=== PATIENT | male | born 1940 | race Caucasian/White ===

== ENCOUNTER 2020-05-04 15:03 | Inpatient (IN) | payer OTHER ==
[~2020-05-04] VITALS: Ht 190.5 cm; Wt 86.5 kg
[2020-05-04 12:00] VITALS: BP 125/58
--- NOTE | 2020-05-04 15:00 | NUR ---
PT RESTLESS IN BED. PT WAS NAKED DUE TO TAKING OFF HIS CLOTHES. REAPPLIED SOCKS, BRIEF, PANTS, AND GOWN. PT PLACED IN KRISTEL CHAIR WITH LAP DAVON DUE TO WANTING TO GET UP AND WALK. PT HIGH FALL RISK. PT FIGITING WITH GOWN. ATTEMPTED TO PUT ON A YELLOW SHIRT, PT GRABBED NURSE WRIST AND TRIED TO BITE HER. PT HAS NUMBEROUS OF SCABS TO LEFT ELBOW, LEFT KNEE, AND SKIN TAB TO BUTTOCKS. APPEARS TO HAVE A TAPE ABRASION TO LEFT BUTTOCKS. PT SITTING OUT IN DINING ROOM. PT FIGITING WITH GOWN AND TRYING TO GET UP. PT ALSO TAKING OFF HIS SOCKS. PT UNABLE TO FOCUS ON STAFF.
--- NOTE | 2020-05-04 16:26 | NUR ---
PT ARRIVES TO FLOOR VIA CART ACCOMNIED BY [facility] FROM [facility] [address]. PT REPORTED BY RN GIVING REPORT TO HAVE BEEN AT [facility] SINCE Apr AND HAD BEEN ADMITTED FROM [facility] AT [facility] WITH MULTIPLE FALLS,INCREASED AGGRESSION AND A-FIB. PER NURSING REPORT PT IS TOTAL CARE-INCONT. B/B-REQUIRES FEEDING AND IS A HIGH FALLS RISK-REQUIRING RESTRAINTS AT [facility]. UPON ARRIVAL TO FLOOR IS DISROBING,TAKING OFF CLOTHING. RESTLESS CONSTANTLY MOVING-ATTEMPTING TO CRAWL OVER SIDERAILS IN BED-WHEN STAFF ATTEMPTED TO INTERVENE AND PUT YELLOW T-SHIRT ON-REPLACE BRIEF AND PANTS GRABS NURSES HAND AND TWISTS VIOLENTLY-ATTEMPTING TO BITE,SCRATCH AND KICK WHEN ATTEMPTS MADE TO REDRESS OR OBTAIN VS. TALKING INCOHERENTLY-CONVERSATION RAMBLING AND NON-GOAL DIRECTED. DR. MCLEAN CONTACTED AND ORDERS RECEIVED. RIANNA CONTEH CONTACTED VIA PHONE AND CONSENTS RECEIVED.
[2020-05-04] MEDS ORDERED: ALPRAZOLAM XR3 MG PO (16:41)
[2020-05-04] MEDS ORDERED: ASA81BEC PO (16:42)
[2020-05-04] MEDS ORDERED: VOLTAREN GEL 1100 G1 TOP (16:43)
[2020-05-04] MEDS ORDERED: LIPITOR40 MG PO (16:44)
[2020-05-04] MEDS ORDERED: DULCOLAX STOOL100 M1 PO (16:45)
[2020-05-04] MEDS ORDERED: DIVALPROEX SOD250 M3 PO (16:45)
[2020-05-04] MEDS ORDERED: AVODART0.5 MG PO (16:45)
[2020-05-04] MEDS ORDERED: FISH OIL 1,001000 M3 PO (16:46)
[2020-05-04] MEDS ORDERED: NEURONTIN 300M300 M2 PO (16:47)
[2020-05-04] MEDS ORDERED: MAGNESIUM OXID400 M2 PO (16:49)
[2020-05-04] MEDS ORDERED: NIZORAL120 ML TOP (16:49)
[2020-05-04] MEDS ORDERED: LOPRESSOR50 MG PO (17:08)
[2020-05-04] MEDS ORDERED: NITROSTAT0.4 M1 SUBLING (17:14)
[2020-05-04] MEDS ORDERED: OLANZAPINE ODT5 MG PO ×2 (17:15→17:16)
[2020-05-04] MEDS ORDERED: SERTRALINE HCL100 MG PO (17:18)
[2020-05-04] MEDS ORDERED: FLORANEX TABLE1 EACH PO (17:18)
[2020-05-04] MEDS ORDERED: FLOMAX0.4 MG PO (17:19)
--- NOTE | 2020-05-04 17:57 | NUR ---
IN GERICHAIR IN DAYROOM ATTEMPTING TO GET UP-SLIDING UNDER LAP BELT AND ATTEMPTING TO CRAWL OVER SIDES. GRABBING ONOT TABLE AND RAMMING GERICHAIR FORCEFULLY INTO TABLE-DR. MCLEAN ON UNIT ZYPREZA 5MG IM GIVEN LEFT DELTOID
[2020-05-04 19:36] VITALS: BP 116/72
--- NOTE | 2020-05-05 02:31 | NUR ---
ASSUMED PT CARE AROUND 1930. AWAKE, DISORIENTED X4 WITH AGITATION AND IMPULSIVENESS. SEEMS LIKE PT'S ALSO HAVING VISUAL/TACTILE HALLUCINATIONS REACHING OUT WITH HAND IN OPEN AIR. DOES NOT FOLLOW ANY COMMANDS AT THIS TIME. ONE TIME ATIVAN WAS GIVEN FOR AGITATION AND IMPULSIVENESS EVEN WITH SITTER WITH PT AT ALL TIMES. PT STILL AWAKE RESTELSS, UNABLE TO CALM DOWN, CONSTANT MOVEMENT IN RECLINER. VSS. NO APPRENT PAIN. NO S/S ACUTE DISTRESS NOTED OR REPORTED AT THIS TIME. WILL CONT TO MONITOR FOR ANY CHANGES IN CONDITION.
[2020-05-05 06:35] LABS: HEMATOCRIT 45.5 % (42.0-52.0); HEMOGLOBIN 15.3 gm/dL (14.0-18.0); MCH 32.3 pg (26.0-34.0); MCHC 33.6 g/dL (28.0-37.0); RBC 4.74 mil/uL (4.50-6.00); RDW 12.7 % (10.5-14.5); WBC 4.1 thou/uL (4.0-11.0)
[2020-05-05 06:53] LABS: ALBUMIN 3.6 g/dL (3.4-5.0); CALCIUM 9.2 mg/dL (8.5-10.1); CREATININE 0.9 mg/dL (0.7-1.3); MAGNESIUM 2.1 mg/dL (1.8-2.4); POTASSIUM 4.2 mmol/L (3.5-5.1); TOTAL BILIRUBIN 0.4 mg/dL (0.2-1.0); TOTAL PROTEIN 7.1 g/dL (6.4-8.2)
[2020-05-05 07:21] LABS: TSH 0.233 uIU/mL (0.358-3.740)
--- NOTE | 2020-05-05 07:30 | NUR ---
PT SLEEPING IN RECLINER THIS AM. PT GETTING LAB DRAWN. PT SLEEPING THROUGH DRAW. PT HAS 1:1 FOR SAFETY. PT AWAKEN WITH VERBAL STIMULI THEN BACK TO SLEEP. PT APPEARS COMFORTABLE IN RECLINER.
[2020-05-05 08:10] LABS: FOLIC ACID 22.6 ng/mL (8.6-58.9)
--- NOTE | 2020-05-05 09:18 | NUR ---
PT STILL SLEEPING IN RECLINER, DIDN'T HAVE BREAKFAST.
--- NOTE | 2020-05-05 09:29 | EKG ---
[facility] [place] [address] ELECTROCARDIOGRAM REPORT Name: BRITTNEY BOOGIE Room #: 517-A ADM IN M.R.#: [id number] Admission: 05/04/20 Attend Phys: Gabriele Arauz DO Discharge: Date of : 42 Report #: [id number] THIS REPORT FOR: cc: Physician not on staff Minh Grace MD [facility] ~ THIS REPORT FOR: //name// [facility] Test Date: 2020-05-04 Test Time: 18:28:43 Pat Name: BRITTNEY BOOGIE Department: Room: 517 A Gender: M Management Accountant: CAROLINE : 1940 Requested By: Swapnil Thao Order Number: [id number] MD: Minh Grace Measurements Intervals [place] Rate: 83 P: 77 IA: 43 QRS: 63 QRSD: 89 T: 9 QT: 401 QTc: 472 Interpretive Statements Sinus rhythm Supraventricular bigeminy Short IA interval No previous ECG available for comparison Electronically Signed On 05-05-2020 9:29:37 CDT by Minh Grace [email or web address] <ELECTRONICALLY SIGNED> By: Minh Grace MD, FACC 05/05/20 0929 27 27 Minh Grace MD, [facility] /EPI
--- NOTE | 2020-05-05 10:11 | NUR ---
PT IS AWAKE AT THIS TIME. WILL ATTEMPT TO GIVE AM MEDS. PT WAS TAKEN TO HIS ROOM TO BE CHANGED. NO ISSUES WITH CARES. PT ABLE TO SIT ON SIDE OF BED AND BEAR WT TO LEGS.
--- NOTE | 2020-05-05 10:28 | NUR ---
PT SITTING IN CHAIR WITH LAP DAVON. PT AWAKE WITH EYES CLOSED. PT DID EAT YOGART AND OATMEAL 100%. PT TOOK CRUSHED MEDS IN YOGART AND WHOLE MEDS IN YOGART. PT CHEWED UP WHOLE MEDS. PT SPIT OUT FLOMAX ON FLOOR. PT LAUGHING WITH NURSE DURING CONVERSATION. PT EYES OPEN AFTER DRINKING SOME OJ. PT NEEDED FED.
--- NOTE | 2020-05-05 11:10 | NUR ---
PT STOOD UP IN DINING ROOM. STAFF OFFERED A WALKER, PT UNABLE TO FOCUS TO USE WALKER. PT WAS ABLE TO REDIRECT BACK TO CHAIR.
--- NOTE | 2020-05-05 12:31 | NUR ---
PT ATE A FEW BITES OF CARROTS WITH LUNCH.
[2020-05-05 19:33] VITALS: BP 121/68
[2020-05-05 22:00] VITALS: BP 121/68
--- NOTE | 2020-05-06 02:59 | NUR ---
Assumed care of patient this pm shift. Patients assessment done in room. Patient has a 1:1 sitter while awake. Patient was very groggy but arousable. Patient was non verbal during assessment. Patient calm and resting. Patient takes medications crushed with pudding. Patients affect is blunted. Patient is alert and oriented to self only. Patients assessment shows no signs of acute distress. Patient is considered a falls risk and has on a yellow shirt and socks. Patient does not appear to want to harm self or others at this time. We will continue to monitor per hospital policy.
[2020-05-06 07:48] VITALS: BP 128/76
--- NOTE | 2020-05-06 08:54 | NUR ---
0700 ASSUMED CARE OF PATIENT, PATIENT SITTING IN DAYROOM AT THAT TIME. PATIENT SITTING IN GERICHAIR RESTLESS AND ATTEMPTING TO REMOVE SHIRT. 0800 PATIENT ASSISTED WITH BREAKFAST, FEW BITES OF MEAL TAKEN. MEDICATION TAKEN CRUSHED IN APLLESAUCE WITHOUT DIFFICULTY. PATIENT SITTING IN GERICHAIR DRINKING COFFEE QUIETLY. ONE ON ONE AT CHAIR SIDE WITH LAP BUDDING IN PLACE. WILL CONTINUE TO OBSERVE
--- NOTE | 2020-05-06 12:19 | NUR ---
1030 PATIENT SLEEPING IN BED WITH EYES CLOSED. 1130 PATIENT BEGINNING TO BECOME RESTLESS. 1:1 AT BEDSIDE. 1200 PATIENT COMBATIVE WITH CARE AND ATTEMPTING TO GET OUT OF BED. PATIENT IS UNSTEADY AND HIGH FALL RISK. BED ALARM ON, PATIENT HAS YELLOW SHIRT ON WITH FALL RISK BAND IN PLACE. 1220 PATIENT TO ROSA CHAIR WITH ASSIST X2, DR MCLEAN ASSISTED STAFF TO TRANSFER PATIENT. PATIENT TO DAYROOM FOR LUNCH.
[2020-05-06 19:20] VITALS: BP 120/49
[2020-05-06 23:12] VITALS: BP 120/49
--- NOTE | 2020-05-07 02:41 | NUR ---
Assumed care of patient this pm shift. Patients mood is variable. Patient is alert and oriented to self only. Patient takes medications as scheduled crushed with pudding. Patient became very agitated towards bedtime and was given a prn medication. Patient calmed down within a half hour and went to sleep. Patients vital signs are stable. Patient shows no signs of acute distress. Patient is considered a falls risk and has on a yellow shirt. Patients affect is blunted. We will continue to monitor per hospital policy.
--- NOTE | 2020-05-07 08:05 | H ---
[facility] [place] [address] HISTORY AND PHYSICAL Name: BRITTNEY BOOGIE Room #: 517-A [facility] IN M.R.#: [id number] Admission: 05/04/20 Attend Phys: Gabriele Arauz DO Discharge: Date of : 42 Report #: [id number] THIS REPORT FOR: cc: Physician not on staff Gabriele Arauz DO ~ CC: Gabriele Arauz Physician staff RENU INTERIANO DATE OF SERVICE: 05/04/2020 INPATIENT PSYCHIATRIC EVALUATION ATTENDING PHYSICIAN: Gabrilee Arauz DO. [place] PATROL LIEUTENANT: Swapnil Thao MD REASON FOR PSYCHIATRIC ADMISSION: Agitation, unable to control behaviors at the [facility] where he was hospitalized for tachycardia since mid-April. SOURCES OF INFORMATION: Attempted interview with the patient, records from [facility], conversation with his , Lola. HISTORY OF PRESENT ILLNESS: This is a 79-year-old male, transferred from [facility] to the [facility] Unit at [facility]. The patient had been placed at [facility] for approximately 1 week before presenting on 04/17 to the [facility]. Apparently, he had altered mental status. He presented from the nursing facility with reports of recurrent falls, agitation, combativeness. His medical history includes paroxysmal atrial fibrillation, Alzheimer's dementia, hypertension, hyperlipidemia and obstructive sleep apnea, on CPAP. His had been unable to care for him. They stated the patient was very pleasant and steady on his feet in the evenings; however, the patient becomes quite agitated and physical with staff. She reports that he attempted to throw rocks through windows in order to "escape" in the evening, this was back in mid-April, he was kicking and punching staff. Nursing facility also reported that he had 6 falls within 48 hours. These were not necessarily witness, but they were mechanical in nature. Past medical records indicate he is on Xarelto for paroxysmal atrial fibrillation. Patient had several medication adjustments as of mid-April. He had been on Seroquel and Ativan as needed. At [facility]' given Depakote, Risperdal and as needed Xanax regimen. They did a CT of the head, which was negative for acute findings. X-ray of the pelvis showed no acute fractures. Chest x-ray showed interstitial edema with bibasilar heterogeneous opacities, thought to be atelectasis. Labs back in mid-April; [address] [address] HISTORY AND PHYSICAL Name: BRITTNEY BOOGIE Room #: 517-A ADM IN M.R.#: [id number] Admission: 05/04/20 Attend Phys: Gabriele Arauz, Discharge: Date of : 42 Report #: [id number] hypernatremic sodium was 148, potassium 3.4, AST 76, otherwise unremarkable. On arrival to the ED, was in AFib with RVR, rates 120s-130s. He was started on a diltiazem drip and admitted. PAST MEDICAL HISTORY: As stated includes Alzheimer's dementia, anisocoria, coronary artery disease, erectile dysfunction, essential hypertension, hereditary and idiopathic peripheral neuropathy, melanoma in situ of breast, mixed hyperlipidemia, osteoarthritis, paroxysmal atrial fibrillation, history of melanoma, sleep apnea. PAST SURGICAL HISTORY: Includes PCI YESIKA 12/10/2017 at [facility]. ADDITIONAL SURGICAL HISTORY: Appendectomy in 2012, cataract extraction bilateral 12/2017. Coronary angiography with possible PCI 12/2017. Epidural block injection 06/2018. EGD with biopsy 2014. Biopsy with forceps 03/2015. Hand surgery, knee surgery. Biopsy of skin lesion. Revised median nerve carpal tunnel surgery, rotator cuff repair and vasectomy. FAMILY MEDICAL HISTORY: Includes history of gastric cancer. Apparently, his mother had Alzheimer's disease. He has had a brother of cancer and one of heart failure. I think he has at least 1 living sibling, older sister, I believe. SOCIAL HISTORY: Former smoker, quit over 40 years ago, allegedly 10 pack years. No history of smokeless tobacco. No history of alcohol use. ALLERGIES: HOUSEHOLD DUST MITES, SULFONAMIDE ANTIBIOTICS AND LOSARTAN, BELIEVE THIS IS AN JULISSA INDUCED COUGH. For medications, I will focus on what [facility] discharged to mom as they dealt with other long-term med issues prior to his acute care admission. 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 It looks like Dr. Barnhart recommended 125 Depakote in the morning and 250 at bedtime, decrease Neurontin to 200 b.i.d., supportive therapy. He had episodic agitation. It looks like they got up to 250 t.i.d. with meals on Depakote. LABORATORY DATA: Nice set of lab does show from 05/03, white count 4.22, hemoglobin 16, hematocrit 48, platelet count 188. Sodium 145, potassium 3.7, chloride 108, bicarbonate 28, BUN 33, creatinine 1.0, calcium 9.5, glucose 108. Dr. Barnhart noted visual hallucinations during admission process, memory intermittently coherent. It looks like there was a Neurology consult note, but I am not sure I have that included in the materials I got. [facility] [address] [place] [address] HISTORY AND PHYSICAL Name: BRITTNEY BOOGIE Room #: 517-A ADM IN M.R.#: [id number] Admission: 05/04/20 Attend Phys: Gabriele Arauz DO Discharge: Date of : 42 Report #: [id number] PHYSICAL EXAMINATION: His weight is 92.533 kg, BMI 25.5, height 190.5 cm. VITAL SIGNS: Here at [place], temperature 98.4, pulse 52, respirations 12, BP 125/58. MUSCULOSKELETAL: Nonambulatory in Francesca chair, grabbing things, holding furniture at times. MENTAL STATUS EXAMINATION: This is a well-developed, ill-appearing male, variable level agitated in Francesca chair. Attention impaired. Concentration impaired. Speech coherent, nonsensical, appears to be disoriented and disorganized as to environment and what to do. Denied SI or HI. Likely having visual hallucinations. Unable to assess. Thought content, very well. Memory noted to be impaired, not formally tested. Insight impaired, judgment impaired. Fund of knowledge well below average. Labs have been ordered by hospitalist. FORMULATION: A 79-year-old male transferred to [facility]. History of major neurocognitive disorder due to Alzheimer disease with behavioral disturbance, poor control of this in the acute hospital environment. This is needing to be managed better for him to return memory care placement. DIAGNOSES: Major neurocognitive disorder, likely due to Alzheimer disease with behavioral disturbance. Other diagnoses include paroxysmal atrial fibrillation, now rate controlled; hypertension, hyperlipidemia, benign prostatic hypertrophy, history of arthritis. PLAN: Evaluate, stabilize, obtain collateral. Regarding this Depakote, I will increase to 375 mg of it 3 times a day, Rain [place] Reduce the sertraline from 50 mg to 25 mg a day, stop in 4 days. No Xanax at this time due to the likely disinhibitory effect. Other medications are ordered as follows: He was given at [facility] aspirin 81 mg p.o. daily for heart protection. I discontinued his atorvastatin due to poor life expectancy, discussed with his , I also made him no code. Again, discussed with . He is on dutasteride 0.5 mg p.o. daily for BPH, Flomax 0.4 mg p.o. daily. Gabapentin 300 mg p.o. 3 times a day for neuropathy, magnesium oxide 400 mg p.o. daily for replacement, metoprolol 25 mg p.o. b.i.d. for rate control, I put a 60 beats per minute pulse parameter on this. He is on olanzapine 0.5 mg p.o. at bedtime for sleep and sundowning. Given him describing on things, poor redirect, I did order 5 mg one time IM at about 1730 tonight to see how he responds to that. Time spent on interview, evaluation, review of records, coordination of care is about 45 minutes. STRENGTHS: He is insured, has a who is his DPOA. By the way, he is [address] [address] HISTORY AND PHYSICAL Name: BRITTNEY BOOGIE Room #: 517-A ADM IN ..#: [id number] Admission: 05/04/20 Attend Phys: Gabriele Arauz, DO Discharge: Date of : 42 Report #: [id number] incapacitated for higher level of medical, general financial decisions, so that is enacted at this point. ESTIMATED LENGTH OF STAY: 10-14 days. Regular diet at this point. Regular with assisted feedings as necessary, up only with assistance which is 1 to 2 person and I did put him on 1:1 while awake for now given his fall risk, agitation. Physical therapy has been ordered as well. <ELECTRONICALLY SIGNED> By: Gabriele Arauz DO 05/07/20 0805 1822 57 Gabriele Arauz DO /nt
--- NOTE | 2020-05-07 18:42 | NUR ---
0700 ASSUMED CARE OF PATIENT, PATIENT SITTING IN GERICHAIR IN ROOM WITH 1:1 AT CHAIR SIDE. PATIENT CALM AND QUIET. PATIENT TAKEN TO DAYROOM FOR BREAKFAST AND ASSISTED WITH EATING. PATIENT AGITATED AND ATTEMPTING TO GET UP OUT OF CHAIR. PATIENT TAKEN TO BR TO USE TOILET PATIENT DID NOT VOID. PATIENT DIFFICUT TO HANDLE WITH CARES. PATIENT GRABS AND SQUEZZES HAND AND ARMS OF STAFF. PATIENT BACK TO DAYROOM. 1355 PATIENT GIVEN OLANZAPINE 5MG PO FOR AGITATION. US CONTINUES TO SIT WITH PATIENT 1:1. PATIENT COMBATIVE WITH CARES PATIENT GIVEN OLANZAPINE 5MG IM FOR SEVERE AGITATION. PATIENT CONTINUES TO REMOVE CLOTHING IN CREEPING DOWN GERICHAIR. PATIENT TO ROOM ATTEMPTED TO CHANGE BRIEF, PATIENT COMBATIVE AND SECURITY CALLED TO ASSIST AND CHANGE PATIENT. PATIENT SITTING IN DAYROOM TRYING TO GET UP OUT OF CHAIR. PATIENT UNSTEADY. LAP DAVON IN PLACE
--- NOTE | 2020-05-07 21:21 | NUR ---
Care of patient assumed at 1915: Patient seated in gaye chair, in dayroom with lap pawan in place, with 1:1 sitter at side. Patient restless, easily irritable, labile, frustrated. Patient speaking clear words but disorganized. No s/s of pain or discomfort. No behavior indicative of SI/HI/AH/VH. Patient will sit quietly for a couple minutes then quickly starts to pull on lap pawan, stand up or slide forward to the floor. Frequent re-direction has been required this evening. Patient ate 100% of 2 different snacks. Drank 240cc water. Required total assist due to confusion. Patient answers to name being called but is not able to provide further meaningful information. Disoriented, confused. Took HS medication crushed without difficulty. Remains restless and is seated with sitter in dayroom.
[2020-05-08 09:19] VITALS: BP 115/75
--- NOTE | 2020-05-08 09:30 | NUR ---
0700 ASSUMED CARE OF PATIENT, PATIENT AWAKE AND SITTING IN DAYROOM WITH LAP DAVON ON AND 1:1 AT CHAIRSIDE. PATIENT FIDGETY IN CHAIR. 0810 PATIENT TAKES MEDICATION CRUSHED IN APPLESAUCE WITHOUT DIFFICULTY. PATIENT ATE 95% OF MEAL. 0850 PATIENT NOTED SLEEPING WITH EYES CLOSED IN CHAIR.
--- NOTE | 2020-05-08 14:40 | NUR ---
MIKE attempted to contact Pt's /DPOA Lola Abel, . MIKE left a VM for a call back. MIKE sent updates to [facility]
--- NOTE | 2020-05-08 18:01 | NUR ---
PATIENT RESTLESS AND CONTINUES TO DISROBE. 1645 PATIENT TAKEN TO SHOWER ROOM AND SHOWER GIVEN X 3 ASSIST. PATIENT TOLERATED WELL WITH MINIMAL AGGRESSION DURING SHOWER. SMALL HARD RED SPOT NOTED TO LEFT BOTTOM. PATIENT TO [facility] AND TO DAYROOM FOR DINNER. PATIENT ATE 100% OF MEAL. AFTER DINNER PATIENT CONTINUES TO BE RESTLESS.
[2020-05-08 19:35] VITALS: BP 139/116
[2020-05-08 20:07] VITALS: BP 128/82
--- NOTE | 2020-05-08 23:14 | NUR ---
Care assumed of patient at 1915: Patient seated in dayroom at start of shift. Patient restless, impulsive, attempting to get out of chair independently. Removing clothing and pilfering. Resistive to assessment and vital signs. Attempted to grab nurse arms and kick legs at nurse. Staff required assist to remove patients hands from staff and medical equipment. Patient would then look at staff and smile and wave. Labile at times. Easily irritable. Attempted to assist patient with urinal due to him stating he needed to use the bathroom. Staff attempted to assist with urinal for several minutes when patient then grabbed the urinal, crushing it, then throwing it on the floor. Patient did take HS medication crushed without difficulty. Ate 100% HS snack, fed by nurse. Patient responds to name being called but is not able to repeat name back to staff. Speech disorganized and rambling at times. Attempted to assist patient to bed due to appearing tired and falling asleep while sitting in gaye chair. Patient started to crawl in his bed, trying to hang over the side of the mattress. Patient assisted back to his recliner and assisted to dayroom. FRANCIS Malagon notified. Due to some positive results from Trazodone 50mg PO, order obtained to repeat Trazodone 50mg PO 1x. After approximately 1 hour, patient was able to be assisted to bed and appears to be resting quietly at this time.
[2020-05-09 07:27] VITALS: BP 142/75
[2020-05-09 10:34] VITALS: BP 142/75
--- NOTE | 2020-05-09 12:38 | NUR ---
1240 RESUMMED CARE FROM OVERNIGHT SHIFT THIS AM, PATIENT IN DAYROOM IN RECLINER QUIET. PATIENT WAS SOMEWHAT HARD TO AWAKE FOR BREAKFAST, TOOK MEDICATION CRUSHED IN OATMEAL. PATIENTS ABDOMEN SOFT ROUND BOWEL SOUNDS PRESENT. PATIENTS LUNGS CLEAR PATIENT HAS NOT DISPLAYED ANY BEHAVIORS THIS AM. PATIENT UNABLE TO TELL YOU ABOUT SI.HI/AH/VH AT PRESENT DUE TO COGNITIVE ISSUES. PATIENT IN RECLINER SLEEPING ON AND OFF ORIENTED TO SELF ONLY WILL CONTINUE TO MONITOR PATIENT FOR SAFETY AND BEHAVIORS.
--- NOTE | 2020-05-09 12:52 | NUR ---
UNABLE TO EVAL Pt TIMES 4 ATTEMPTS. PER STAFF AT Pt'S FACILITY, Pt REQUIRES ASSIST/DEPENDENT FOR ALL ADL'S/MOBILITY. Pt IS NOT APPROPRIATE FOR SKILLED P.T.. WILL D/C Pt FROM P.T. AT THIS TIME.
--- NOTE | 2020-05-09 14:20 | NUR ---
RT Progress Note- Filiberto has not actively engaged in the milieu or recreation therapy during this review period. His level of cognition has limited him as well as his aggressive behavior. RT staff will continue to offer opportunities to engage in the milieu and recreation.
[2020-05-09 19:32] VITALS: BP 126/64
[2020-05-09 19:33] VITALS: BP 126/64
--- NOTE | 2020-05-09 20:59 | NUR ---
PATIENT LAYING IN BED IN ROOM ISOLATION WHEN CAME ON SHIFT. PATIENT AWOKE TO GO TO BATHROOM. VSS 116/58 P70 R20 T97.4 0296%. PATIENT UNABLE TO FOLLOW DIRECTIONS WITH LACK OF COMPREHENSION OF WHAT IS BEING SAID. LUNGS CTA BILATERALLY. NO SOA, NO COUGH NOTED. ABDOMEN FIRM WITH ACTIVE BOWEL SOUNDS. PATIENT A/0X1. PATIENT AMBULATES STEADILY WITHOUT ASSISTANCE. NIGHTTIME MEDS GIVEN CRUSHED IN APPLESAUSE AND SHERBERT FOR SNACK. PATIENT UP LATER NEEDING TO BE REDIRECTED TO STAY IN ROOM. NEW ORDER PER DR MCLEAN FOR GEODON 20MG IM WHICH WAS GIVEN WITH SECURITY ASSISTANCE. PATIENT DENIES PAIN. HAS TO BE ENCOURAGED TO TAKE MEDS. LAB REPORT POSITIVE FOR COVID AT 2044. REPORT CALLED TO KRISHNA Shrestha RN ON 3W. PATIENT TRANSPORTED BY TO THE FLOOR WITH MASK ON. CONTINUE TO MONITOR. BELONGINGS FROM LOCKER SENT ALSO.
--- NOTE | 2020-05-09 22:31 | NUR ---
Care assumed of patient at 1915: Patient seated in recliner in dayroom at start of shift. Appears to be drowsy but restless at times in trying to move furniture, removing clothing, stand up or slide forward out of chair independently. Patient incontinent of bladder. Patient not able to stand and becoming physically aggressive while staff attempted to provide angel care and linen change. Security notified to assist. Patient was able to be changed, clothed and barrier cream applied. Patient remained restless so he was assisted back to recliner and placed in dayroom for increased observation. Patient alert to name only. No s/s of pain or discomfort. Clear but disorganized speech. Patient was soon able to fall asleep after lights were dimmed. Patient took HS medication crushed without difficulty. Declined further HS snack by pushing away nurses arm when attempting to feed patient pudding. Patient has been able to rest quietly since.
[2020-05-10 07:37] VITALS: BP 112/62
[2020-05-10 16:18] LABS: ABSOLUTE NEUTROPHILS 3.1 thou/uL (1.4-8.2); BASOPHILS 0.8 % (0.0-2.0); EOSINOPHILS 3.1 % (0.0-3.0); HEMATOCRIT 43.1 % (42.0-52.0); HEMOGLOBIN 14.3 gm/dL (14.0-18.0); LYMPHOCYTES 20.3 % (24.0-44.0); MCH 31.8 pg (26.0-34.0); MCHC 33.1 g/dL (28.0-37.0); MCV 96.2 fL (80.0-100.0); MONOCYTES 9.4 % (1.0-8.0); PLATELET COUNT 155 thou/uL (150-400); POLYS 66.4 % (36.0-66.0); RBC 4.48 mil/uL (4.50-6.00); RDW 13.1 % (10.5-14.5); WBC 4.7 thou/uL (4.0-11.0)
[2020-05-10 16:27] LABS: CALCIUM 8.9 mg/dL (8.5-10.1); POTASSIUM 3.7 mmol/L (3.5-5.1)
--- NOTE | 2020-05-10 16:39 | NUR ---
Alerts to name only. Confused speech to other questions. No speech/behavior suggestive of SI/HI. Becomes restless at times trying to stand up and get out of chair. Other times is sleeping soundly without s/o distress. Eats well when fed. Breath sounds clear. Reg HR auscultated. Color pink with brisk capillary refill and palpable peripheral pulses. No edema noted in lower extremities. Brief dry this AM Active bowel sounds over soft, rounded abdomen. 1545 Dr. Rausch rounded and requested O2 sat--mid 80s despite color pink per report. O2 sat repeated on ear lobe--94-96% Dr. Rausch notified. ABG, CXR and RT tx cancelled per order. Pt incontinent of large amt yellow urine. Cleaned up and placed back in recliner. Currently sleeping without s/o distress.
[2020-05-10 21:59] VITALS: BP 112/62
--- NOTE | 2020-05-11 01:52 | NUR ---
Assumed care of patient this pm shift. Patient sitting in mileu. Alert and oriented to self only. Affect euthymic. Patient is calm and cooperative. Medication adherent. Meds crushed in ice cream. Patients vital signs stable. Patients assessment shows no signs of acute distress. Patient is incontinent of bowel and bladder. Patient is considered a falls risk and has on a yellow shirt. Patient does not appear to have hi/si. Patient does not appear to be in any pain. We will continue to monitor per hospital policy.
[2020-05-11 06:20] LABS: ABSOLUTE NEUTROPHILS 2.5 thou/uL (1.4-8.2); BASOPHILS 0.7 % (0.0-2.0); EOSINOPHILS 3.7 % (0.0-3.0); HEMOGLOBIN 14.6 gm/dL (14.0-18.0); LYMPHOCYTES 21.3 % (24.0-44.0); MCH 32.5 pg (26.0-34.0); MCHC 33.9 g/dL (28.0-37.0); MONOCYTES 9.5 % (1.0-8.0); PLATELET COUNT 152 thou/uL (150-400); POLYS 64.8 % (36.0-66.0); RBC 4.48 mil/uL (4.50-6.00); RDW 12.9 % (10.5-14.5); WBC 3.8 thou/uL (4.0-11.0)
[2020-05-11 06:50] LABS: ALBUMIN 3.3 g/dL (3.4-5.0); CREATININE 0.8 mg/dL (0.7-1.3); MAGNESIUM 2.1 mg/dL (1.8-2.4); POTASSIUM 3.7 mmol/L (3.5-5.1); TOTAL BILIRUBIN 0.4 mg/dL (0.2-1.0); TOTAL PROTEIN 6.7 g/dL (6.4-8.2)
[2020-05-11 07:00] VITALS: BP 111/85
--- NOTE | 2020-05-11 11:02 | NUR ---
PATIENT WAS SITTNG IN GERICHAIR AWAKE WHEN CARE ASSUMED. PATIENT WAS RESTLESSS, IRRITABLE, AGITATED, ATTEMTPING TO SLIDE DOWN OF GERICHAIR. DR. MCLEAN NOTIFIED, ONE TIME PHONE IM ORDER FOR HALDOL 7.5MG, AND ATIVAN 2MG NOTED PER DR. MCLEAN. HALDOL AND ATIVAN GIVEN TO LEFT DELTOID, WITH POSITIVE EFFECT. ORDER FOR BLADDER SCAN, STRIAGHT, AND URINALYSIS, NOTED PER DR. WICK. THIS DIGITIZER'S ATTEMPT TO PERFORM BLADDER SCAN FAILED THE BLADDER MACHINES WAS NOT COMING ON. STRAIGHT CATH COMPLETED, WITH URINE OUT-PUT OF 100MLS, URINE SPECIMEN COLLECTED, SENT TO LAB, AWAITING RESULT. PATIENT CONTINUE TO BE RESTLESS WHILE SITTING IN GERICHAIR, LAPBUDDY ON, ALL FALL PRECAUTIONS IN PLACE. NO SIGN OF ACUTE DISTRESS NOTED AT THIS TIMED, WILL MONITOR FOR SAFETY.
[2020-05-11 13:49] LABS: URINE BILIRUBIN NEGATIVE (Negative); URINE BLOOD NEGATIVE (Negative); URINE CLARITY CLEAR; URINE COLOR YELLOW; URINE GLUCOSE-RANDOM* NEGATIVE (Negative); URINE KETONES NEGATIVE (Negative); URINE LEUKOCYTES-REFLEX NEGATIVE (Negative); URINE NITRITE-REFLEX NEGATIVE (Negative); URINE PROTEIN (DIPSTICK) NEGATIVE (Negative); URINE SPECIFIC GRAVITY 1.015 (1.005-1.035); URINE UROBILINOGEN 0.2 E.U./dl (0.2-1.0)
[2020-05-11 19:35] VITALS: BP 133/50
--- NOTE | 2020-05-12 03:17 | NUR ---
Assumed care of pt @ 1900. Pt calm et cooperative this shift. Took medications crushed in yogurt. Ambulates with assistance of gaye-chair. VSWNL. Health assessment with no abnormalities other than previously noted. Unable to assess SH/HI/AVH due to pt's cognitive deficit but does not demonstrate any signs or symptoms of emotional distress at present time. Currently resting in gaye-chair in dayroom with eyes closed. Will continue to monitor per protocol.
[2020-05-12 07:00] VITALS: BP 106/61
--- NOTE | 2020-05-12 13:36 | NUR ---
Alerts to name only. Drowsy this AM and sporadically gets restless and attempts to get out of chair/bed. Attempted to feed for breakfast and lunch with little sucess. Takes fluids/food without diff at times and at other times lets fluids/food run out of his mouth or spits. Moves arms equally and is resistant equally but does not obey commands. Pupils equal and reactive. No speech or behavior suggestive of SI/HI. Dr. Drake notified when rounding, 1300 Olanzapine held per order. Breath sounds clear. Reg HR auscultated. Color pink with brisk capillary and cool extremities. Incontinent of large amt yellow urine per brief. Active bowel sounds over soft, rounded abdomen. Last documented BM was 05/08 although there is a nurses note on 05/10 stating pt is incontinent of bowel and bladder. Milk of magnesium and prune juice given PO which he took w/o diff. Erythema on scrotom and buttocks. Pericare done and zinc paste applied. No attempts at walking this AM, bears very little weight. Repositioned multiple times d/t restlessness.
--- NOTE | 2020-05-12 15:39 | NUR ---
DURING WEEK ONE OF HER ADMISSION, JAMA HAS BEEN VERY ISOLATED WITH HIS PEERS AND STAFF. HE MAINLY SLEEPS THROUGHOUT THE DAY IN [facility]. PT MUST HAVE ASSISTANCE TO HELP WITH HIS ADLs. IT IS ENCOURAGED BY THE RECREATION THERAPIST THAT HE WILL CONTINUE TO BE MOTIVATED TO INCREASE COPING SKILLS AND SELF ESTEEM TO REDUCE ANY FUTURE STRESSORS.
[2020-05-12 19:35] VITALS: BP 108/60
--- NOTE | 2020-05-13 02:07 | NUR ---
10 CARE TRANSFERED 1900 OBSERVED PT SITTING IN ROSA CHAIR IN DAY ROOM RESTING WITH EYES CLOSED. 2014 PT PRESENTS DROWSY WILL ANSWER TO NAME, VSS, RR EVEN AND NONLABORED ON RA. NO S/S OF PAIN NOTED, NO BEHAVIORS INDICATIVE OF SI/HI. NOTE MULTI SUPERFICIAL SCRATCHES LE, SCABBED. DURING MEDICATION ADMIN PT HAD NO DIFFICULTIES. LATER ASSISTED IN REPOSITION. NO S/S OF ACUTE DISTRESS NOTED, PT WILL CONTINUE TO BE MONITOR PER [facility].
[2020-05-13 06:26] LABS: ABSOLUTE NEUTROPHILS 3.3 thou/uL (1.4-8.2); BASOPHILS 0.7 % (0.0-2.0); EOSINOPHILS 2.3 % (0.0-3.0); HEMOGLOBIN 15.5 gm/dL (14.0-18.0); LYMPHOCYTES 13.7 % (24.0-44.0); MCH 31.7 pg (26.0-34.0); MCV 96.2 fL (80.0-100.0); MONOCYTES 10.2 % (1.0-8.0); PLATELET COUNT 140 thou/uL (150-400); POLYS 73.1 % (36.0-66.0); RBC 4.89 mil/uL (4.50-6.00); RDW 13.1 % (10.5-14.5); WBC 4.5 thou/uL (4.0-11.0)
[2020-05-13 07:00] VITALS: BP 124/90
[2020-05-13 07:00] LABS: ALBUMIN 3.3 g/dL (3.4-5.0); CALCIUM 8.8 mg/dL (8.5-10.1); CREATININE 0.9 mg/dL (0.7-1.3); DIRECT BILIRUBIN 0.1 mg/dL (<0.1-0.2); MAGNESIUM 2.1 mg/dL (1.8-2.4); POTASSIUM 3.7 mmol/L (3.5-5.1); TOTAL BILIRUBIN 0.5 mg/dL (0.2-1.0)
[2020-05-13 07:45] VITALS: BP 124/90
--- NOTE | 2020-05-13 07:50 | NUR ---
Assumed care 0700. Approximately 0730 staff found patient with his right leg wedged between the foot rest and the chair arm which looked like it had been there for some time due to the dent. There was a reddened skin scraped area with medial and lateral sides about 3 cm each in diameter. It is difficult to tell if these are new or not. This nurse has never cared/been assigned to him before. Also has about 6 inches by 1 inch wide old scraped inner right lower leg area reddened with healing skin in small fragmented splotches. He is restless pushing pillows used to try to pad his chair out of the way. He had a large puddle of urine on the floor by his chair in the dayroom. Patient was taken to his room, photographed his leg, and did angel care with skin barrier placed on his buttocks. He was returned to his recliner with pillows to pad the chair. He remained somnolent.
--- NOTE | 2020-05-13 13:55 | NUR ---
called about 1245, to be called back. The phone in use had a bad connection. Patient was sleeping, unable to hear family on phone. His 1300 antipsychotic meds were held per verbal order of Parag Drake. note they were initially charted as such then later when rechecked they were not notated as such and recharted. Patient continues to slide down in the reclinerpushing the straight chair away from his recliner. He has restless legs. will not answer questions. When staff tries to readjust his position he stiffens up arms and legs and continues to display restless legs. It is better for him to use a syringe to drop in water and juice. He is not eating even mashed potatoes or cheesecake/custard. Earlier in the shift he take pudding with meds and tolerated that well without choking.
--- NOTE | 2020-05-13 17:01 | NUR ---
Taken to bed 1600, changed. Incontinent large amount of urine. Has not spoken to staff today. Has been fidgeting, moving pillows away, sometimes on the floor. Taking in little fluids. Mouth very dry. Offered ice cream-took two bites=his favorite food per . Z guard to buttocks/angel area after pericare. by 1630 tried to get out of bed over the side rails x 5. explained he could be put in a different position if he would tell staff. He was turned to his right side x 2. safetry was explained that we did not want him to fall on the floor or get hurt. supervisor rod placing was called to request Mepolex dressings for patient's legs per Dr. Rausch.--no ointment or creams to dressings on legs. supervisor orchard unable to make it to the unit yet. Patient snoring by 1705. Currently lying on his right side. Parag Drake NP observed the fidgeting/restlessness and verified on eMAR the med changes he made.
[2020-05-13 19:22] VITALS: BP 117/64
--- NOTE | 2020-05-13 20:26 | NUR ---
Assumed care on 05/13/20 @ 19:15, in bed eyes closed respirations even and unlabored. HRRR, Lungs CTA bilat, ABD N x 4 Q, Bed in low posiiton, bed alarm set, will continue to monitor as per unit protocol.
--- NOTE | 2020-05-13 20:38 | NUR ---
LATE NOTE FROM DAYSHIFT: Patient was given 300 cc and incontinent x 3 large amounts.
[2020-05-13 22:21] VITALS: BP 117/64
--- NOTE | 2020-05-14 06:33 | NUR ---
Slept 9.6 hours overnight.
[2020-05-14 07:52] VITALS: BP 152/98
--- NOTE | 2020-05-14 14:13 | NUR ---
Assess for length of stay. Admit to H unit, alzheimers dementia. DNR status. Had started refusing meals, however much better 05/14, ate 100% of lunch and LEGAL RECEPTIONIST states ate 100% lunch again today. Na and Cl levels are elevated. Encourage adequate fluids and meal consumption and hopefully these levels will be corrected. Physician following, possible need for ivf. Had 2 different wts recorded, 204 lb on 05/04 and 190 lb on 05/05. Need current wt. Low nutrition riskbut will continue to track intake trends.
--- NOTE | 2020-05-14 15:03 | NUR ---
MINIMALLY VERBAL THIS SHIFT-WILL APPEAR TO SMILE AND GESTURE TO NURSING STAFF DURING INTERACTION AND CARES AND WILL GRUNT OR HUM TO SELF AT TIMES WHILE SITTING UP IN GERICHAIR IN DAYROOM. RESTLESS AND SPASTIC AT TIMES FLAILING ARMS AND LEGS OVER SIDE OF GERICHAIR AND AT TIMES APPEARS TO BE ATTEMPTING TO ROLL OVER THE SIDE ARM OF GERCHAIR.WAS FAIRLY COOPERATIVE WITH ALLOWING PARTIAL BATH,SHAVE,CLOTHING CHANGE AND ORAL CARE. LIPS AND MOUTH DRY,CRACKED,WILL TAKE SIPS OF FLUID SLOWLY AND WITH MUCH ENCOURAGEMENT-DOES APPEAR TO HOLD FOOD/FLUIDS IN MOUTH-DELAYED SWALLOW BUT NO NOTED COUGHING,ASPIRATION AFTER SWALLOW. WILL TAKE MOSTLY SOFT FOODS IE ICE CREAM,PUDDING,JELLO ETC. REQUIRES ASSIST OF 2-3 STAFF TO TRANSFER TO/FROM BED/GERICHAIR.
--- NOTE | 2020-05-14 15:34 | NUR ---
FELIPA and Dr. Arauz had a phone call with the Pt's , Lola Abel. Lola was provided an update and informed of the recommendation for hospice. Lola was also informed that Pt would be ready for d/c on Thursday or this week . Felipa informed that [facility] provided 3 hospice companies that they prefer. Lola indicated she was okay with this information. Lola stated she would like the Pt to return to [facility] [place]. Lola had no further questions or comments at this time.
--- NOTE | 2020-05-14 15:38 | NUR ---
MIKE spoke with Yessi at [facility], . MIKE gave an update and asked for information on prefered hospice providers. MIKE informed Pt will be discharged or Thursday. MIKE will set up transportation. Yessi gave the following : Hospice, [facility] and [facility].
--- NOTE | 2020-05-14 15:40 | NUR ---
MIKE faxed Hospice referrals to the Following Hospice [phone] [facility] [phone] [facility]
[2020-05-14 15:50] LABS: ABSOLUTE NEUTROPHILS 2.7 thou/uL (1.4-8.2); BASOPHILS 0.7 % (0.0-2.0); EOSINOPHILS 4.6 % (0.0-3.0); HEMOGLOBIN 14.8 gm/dL (14.0-18.0); LYMPHOCYTES 16.4 % (24.0-44.0); MCH 31.7 pg (26.0-34.0); MCHC 32.8 g/dL (28.0-37.0); MCV 96.6 fL (80.0-100.0); MONOCYTES 8.9 % (1.0-8.0); PLATELET COUNT 133 thou/uL (150-400); POLYS 69.4 % (36.0-66.0); RBC 4.66 mil/uL (4.50-6.00); WBC 3.9 thou/uL (4.0-11.0)
--- NOTE | 2020-05-14 15:54 | NUR ---
HAD BEEN RESTING QUIETLY IN BED UNTIL APPROX 1530-LAB ON UNIT TO DRAW BLOOD -BECAME COMBATIVE-ATTEMPTING TO CRAWL OVER SIDE RAILS OF BED-STRIKING OUT AT STAFF-ATTEMPTED TO GIVE PO HALDOL IN PUDDING BUT IS CURSING AND SPITTING AT NURSING-ATIVAN 1MG GIVEN IM LVG AT APPROPX. 1545 STAFF AT BEDSIDE AT THIS TIME-CONTINUES RESTLESS-THRASHING/FLAILING-THROWING ARMS AND LEGS OVER SIDERAIL OF BED. RESPOSITIONED FOR COMFORT. FLUIDS OFFERED/ACCEPTED.
[2020-05-14 16:03] LABS: ALBUMIN 3.3 g/dL (3.4-5.0); CALCIUM 8.7 mg/dL (8.5-10.1); CREATININE 0.9 mg/dL (0.7-1.3); MAGNESIUM 2.1 mg/dL (1.8-2.4); POTASSIUM 3.6 mmol/L (3.5-5.1); TOTAL BILIRUBIN 0.6 mg/dL (0.2-1.0); TOTAL PROTEIN 6.4 g/dL (6.4-8.2)
--- NOTE | 2020-05-14 17:04 | NUR ---
MIKE recieved a call from [facility] [phone]. request information at d/c.
[2020-05-14 20:19] VITALS: BP 105/64
[2020-05-14 22:18] VITALS: BP 105/64
--- NOTE | 2020-05-15 01:22 | NUR ---
Assumed care of patient this pm shift. Patient in his room during assessment. Patient is nonverbal and drowsy this evening. Patient shows no signs of pain. Patient shows no signs of hi/si. Patient is alert to self only. Patients vital signs are stable. No signs of acute distress at this time. Patient takes medications crushed in pudding. Patient is considered a falls risk and has on a yellow shirt. No comments or concerns voiced by patient this evening. We will continue to monitor per hospital policy.
[2020-05-15 08:40] VITALS: BP 125/66
[2020-05-15 08:54] VITALS: BP 125/66
--- NOTE | 2020-05-15 11:03 | NUR ---
MIKE had a phone call with Lola Abel and Dr. Multani concerning a hospice house. Lola is requesting Pt be sent to Hospice. MIKE will follow up
--- NOTE | 2020-05-15 14:20 | NUR ---
Assumed care of patient at 0700. Alert and oriented to self. Restless, up in gaye chair. Moving extremties, legs and arms frequently. Reaching for blankets. Up in dayroom in gaye chair. Using lap pawan for support. Incontinent of bowel and bladder.nhaving redness and erythema on buttocks. Zinc paste and skin protectant applied. Given Actetaminopnen 650 mg PO, crushed at 11:56 for discomnfort. Ativan 1 mg IM given at 11L55. Both medications with moderate effect. Restlessness continues. Remains on Fall precautions. Restlessness continues. Given Haldol 7.5 mg IM and Ativan 1.5 mg IM at 1358. Reaching for ephraim, continues to move extremeties.
--- NOTE | 2020-05-15 16:34 | NUR ---
MIKE spoke with MARAL Ramirez at hospice. Ashley informed Pt would qualify for hospice but not hospice house. Ashley stated they would be able to provide hospice for the Pt at [facility]. MIKE informed that Pt would need a hospital bed. Also that Pt d/c yudith of 05/17/2020 to [facility]
--- NOTE | 2020-05-15 16:39 | NUR ---
MIKE contacted Lola and gave information for Hospice. MIKE informed that Pt will d/c back to [facility] with Hospice
--- NOTE | 2020-05-15 16:40 | NUR ---
FELIPA spoke with Yessi at [facility]. Felipa informed Yessi of d/c plan and schedule. Pt will d/c to [facility] with Hospice on 05/17/2020 @ [id number]
[2020-05-15 19:29] VITALS: BP 99/63
--- NOTE | 2020-05-15 20:56 | NUR ---
gave report to 4 yuliana, pt vss, rr even and nonlabored on ra, pt had no difficulties with medication. pt transfered via [facility] to [facility]. zero s/s of acute distress noted.
--- NOTE | 2020-05-16 23:25 | D ---
[facility] [place] [address] [place] [address] DISCHARGE SUMMARY Name: BRITTNEY BOOGIE Room #: 517-A [facility] IN M.R.#: [id number] Admission: 05/04/20 Attend Phys: Gabriele Arauz DO Discharge: 05/15/20 Date of : 42 Report #: [id number] THIS REPORT FOR: cc: Physician not on staff FAM - Family physician unknown Gabriele Arauz DO ~ THIS REPORT FOR: //name// CC: Gabriele Arauz [facility] unknown Physician staff RENU INTERIANO DATE OF SERVICE: 05/16/2020 INPATIENT PSYCHIATRIC DISCHARGE SUMMARY ATTENDING PHYSICIAN: Gabriele Arauz DO. CYTOLOGIST AT THE TIME OF DISCHARGE: Dr. Walker. 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 Comorbidities for this patient include failure to thrive, sinus tachycardia, hypertension, and hyperlipidemia. He is DNR. DISCHARGE PLAN: The patient is discharging to the 4th floor at [facility] due to the coronavirus epidemic. The patient has tested negative several times now for COVID-19. DISCHARGE MEDICATIONS: Include alprazolam listed; however, this was not intended to the discharge medication it was 0.25 mg p.o. daily p.r.n. for anxiety, aspirin enteric coated 81 mg p.o. daily, diclofenac 1 gram topical p.o. b.i.d. p.r.n. for joint pain, atorvastatin 40 mg p.o. at bedtime for hyperlipidemia, Depakote 250 mg p.o. 3 times a day, docusate 1 capsule p.o. b.i.d., dutasteride 0.5 mg p.o. daily, omega 3 vitamins, gabapentin 300 mg p.o. t.i.d. for pain. I do not believe, he is actually getting ketoconazole, magnesium 4 mg p.o. tablet, metoprolol 25 mg p.o. b.i.d. He was getting 5 mg of olanzapine at bedtime, sertraline 50 mg p.o. daily, acidophilus probiotic, tamsulosin 0.4 mg p.o. daily, but generally throughout the hospitalization, he was managed with Depakote and olanzapine. It should be noted his blood level on the Depakote was 52. When it was rechecked on 05/13/2020, I think they dropped down a bit due to some doses he refused and that was as high as 88 on 05/09/2020. The patient currently is on a pureed diet. He does have a high aspiration due [facility] [address] [place] [address] DISCHARGE SUMMARY Name: BRITTNEY BOOGIE Room #: 517-A [facility] IN ..#: [id number] Admission: 05/04/20 Attend Phys: Gabriele Arauz DO Discharge: 05/15/20 Date of : 42 Report #: [id number] to food remaining in his mouth, being able to swallow, so liquids should be used cautiously as he is total care. Hospice has been recommended to his family, his , Lola has been very involved. The patient was largely failed to improve in this hospitalization. He is requiring assistance with most ADLs, spent lot of time outside of the Francesca chair and unfortunately, this has been a progression unless 68 years according to his . LABORATORY DATA: Significant laboratories I think I forgot to review. H and H 14.8 and 45.0, white count 3.9, and platelet count 133 on 05/14/2020. Chemistries from 05/14/2020, sodium 148, slightly hypernatremic, potassium 3.6, chloride 111, bicarbonate 27, anion gap 10, BUN 20, creatinine 0.9, estimated GFR 82, glucose 112, calcium 8.7, magnesium 2.1, total bilirubin 0.6, AST 61, ALT 37, alkaline phosphatase 69, total protein 6.4, and albumin 3.3. He had some additional abnormal labs with a free T4 normal at 1.2. TSH low at 0.233. Folate is 22.6. Vitamin D3 7.2, B12 high at 1216. Ammonia by the way was normal 20 done on 05/13/2020. COVID-19 PCR serology is again negative on 05/09/2020 and 05/14/2020. PHYSICAL EXAMINATION: VITAL SIGNS: On the day of discharge, temperature 36.3, pulse 64, respirations 18, BP 99/63, O2 sat 98%. He was seen via the televideo today. MUSCULOSKELETAL: Seated in a Francesca chair. MENTAL STATUS EXAMINATION: This is a well-developed, ill-appearing, disheveled male, appearing at least stated age. Attention impaired. Concentration impaired. Speech, variably spontaneous, not too sensical, unable to assess well his suicidality, homicidality, auditory, visual, or tactile hallucinations or mood. Insight is impaired. Judgment is impaired. Memories are impaired. PROGNOSIS: For this patient is poor. Engagement in hospice when discharged to nursing facility is recommended. <ELECTRONICALLY SIGNED> By: Gabriele Arauz, 05/16/20 [id number] Gabriele Arauz, DO /nt
== END 2020-05-15 21:20 | disposition short-term general hospital (02) | DRG 57 ==
LOC: SBH 15:03
PROVIDERS: Internal Medicine; ADMIT Psychiatry & Neurology Psychiatry; ATTEND Psychiatry & Neurology Psychiatry
DX: G30.9 Alzheimer's disease, unspecified (principal); F01.51 Vascular dementia, unspecified severity, with behavioral disturbance; F02.81 Dementia in other diseases classified elsewhere, unspecified severity, with behavioral disturbance; F29 Unspecified psychosis not due to a substance or known physiological condition; I48.0 Paroxysmal atrial fibrillation; I10 Essential (primary) hypertension; E78.5 Hyperlipidemia, unspecified; R62.7 Adult failure to thrive; G47.33 Obstructive sleep apnea (adult) (pediatric); N40.0 Benign prostatic hyperplasia without lower urinary tract symptoms; I25.10 Atherosclerotic heart disease of native coronary artery without angina pectoris; M19.90 Unspecified osteoarthritis, unspecified site; Z66 Do not resuscitate; Z20.828 Contact with and (suspected) exposure to other viral communicable diseases; Z79.01 Long term (current) use of anticoagulants; Z68.23 Body mass index [BMI] 23.0-23.9, adult; Z87.891 Personal history of nicotine dependence; Z88.2 Allergy status to sulfonamides; Z88.8 Allergy status to other drugs, medicaments and biological substances
CPT/HCPCS: 10880

== ENCOUNTER 2020-05-15 20:16 | Inpatient (IN) | payer OTHER ==
[~2020-05-15 20:16] MED LIST: ALPRAZOLAM XR3 MG PO; ASA81BEC PO; AVODART0.5 MG PO; DIVALPROEX SOD250 M3 PO; DULCOLAX STOOL100 M1 PO; FISH OIL 1,001000 M3 PO; FLOMAX0.4 MG PO; FLORANEX TABLE1 EACH PO; LIPITOR40 MG PO; LOPRESSOR50 MG PO; MAGNESIUM OXID400 M2 PO; NEURONTIN 300M300 M2 PO; NITROSTAT0.4 M1 SUBLING; NIZORAL120 ML TOP; OLANZAPINE ODT5 MG PO; SERTRALINE HCL100 MG PO; VOLTAREN GEL 1100 G1 TOP
[2020-05-15 23:16] VITALS: BP 138/85
[2020-05-16 07:40] VITALS: BP 133/54
--- NOTE | 2020-05-16 07:56 | NUR ---
SPOKE WITH DR. MCLEAN ON THE PHONE AND DID GET TELEPHONE ORDER FOR DNR CODE STATUS UPDATE.
--- NOTE | 2020-05-16 09:40 | NUR ---
PT LYING IN BED AND IS VERY STIFF WHEN TURNING. PT NONE VERBAL. PT DOES SAY ONLY ONE WORD AT A TIME. PT KEEPS EYES CLOSED. PT DOES MOAN AT TIMES. PT NEEDS TOTAL ASSISTANCE WITH CHANGING AND FEEDING. PT HAS REDDNESS TO COCCYX AREA, NO BRIEF ON. PT HAS SCRATCHES TO LE THAT ARE SCABBED AND RED. PT DOESN'T SHOW ANY SIGNS OF PAIN IN HIS FACE, PT DOES HAVE RED CHEEKS. PT ABLE TO DRINK WATER WITH 10ML SYRINGE, NOT ABLE TO SUCK WITH STRAW. PT DOES TAKE BITES OF FOOD AND MEDS NEEDS CRUSHED. PT TURNED AND CLEAN UP. BARRIER CREAM APPLIED TO BUTTOCKS.
--- NOTE | 2020-05-16 11:09 | NUR ---
PT ROLLING SELF ON SIDE OF BED. PT GOT LEGS BETWEEN RAILS. ASSISTED PT BACK UP TO BED. PT THEN GOT HEAD PART AND SHOULDERS BETWEEN RAILS AND HAD TO ASSIST BACK TO HEAD OF BED. PT STILL HAS EYES CLOSED. PT MUMBLING WORDS. PT SEEMS COMFORTABLE ON BACK. TURNED OFF TV FOR DECREASED STIMULATION.
--- NOTE | 2020-05-16 12:50 | NUR ---
PT TRAVIS CALLED AND SAID IT WAS THEIR 60 YR ANNIVERSARY. I HAD PHONE TO PT EAR TO TALK TO HER. HE DIDN'T ENGAGE IN CONVERSATION. PT JUST MUMBLES. PT STILL RESTLESS IN BED, TURNING BACK AND FORTH AND HAVING LEGS OVER RAIL.
--- NOTE | 2020-05-16 13:52 | NUR ---
PT TRANSFERED FROM [facility] HERE AT [facility]. CM REVIEWED CHART AND SPOKE WITH CARE TEAM. SW UP ON [facility] HAD BEEN WORKING WITH [facility], HOSPICE, AND PT'S SPOUSE AND HAD MADE ARRANGEMENTS FOR PT TO DISHCARGE BACK TO [facility] Thursday05/17/20 AT 10:00AM. CM TO FOLLOW UP [facility], HOSPICE, AND SPOUSE TO PROVIDE ANY ADDITIONAL ASSITANCE WITH DC PLANNING. PT HAD BEEN MADE A DNR.
--- NOTE | 2020-05-16 14:36 | NUR ---
PT EATING ICE CREAM WITH PLASTIC SPOON. PT DOES BITE DOWN ON SPOON. PT LET GO WHEN ASKED TO. SPOON INTACT. PT BENEFIT WITH REG. SILVERWARE.
--- NOTE | 2020-05-16 15:51 | NUR ---
PT STILL RESTLESS AT TIMES. PT PUTS HEAD IN BETWEEN RAILS AND NEEDS FREQUENT OBSERVATION FOR SAFETY.
--- NOTE | 2020-05-16 16:32 | NUR ---
PT SITTING ON SIDE OF BED, PT MUMBLING, MOVED PT UP FARTHER INTO THE BED. PT VERY RESTLESS. ADM MORPHINE 10MG ORAL FOR PAIN. PT RUBBING LEFT SIDE OF CHEST. PT OPENING HIS EYES AND LOOKING COMFORTABLE.
--- NOTE | 2020-05-16 17:40 | NUR ---
PT SEEMS LESS IRRITATED. GAVE PT WATER VIA 10ML SYRINGE AND ALSO PT EATING MASHED POTATOES. EYES CLOSED AT THIS TIME STILL.
[2020-05-16 23:46] VITALS: BP 128/108
--- NOTE | 2020-05-17 06:35 | NUR ---
PT RESTING QUIETLY FOR MOST OF THIS RN'S SHIFT ON THE UNIT, BECOMING RESTLESS TOWARD MORNING, REPOSITIONED, NOT FIGHTING OR BECOMING AGGRESSIVE
[2020-05-17 07:20] VITALS: BP 66/33
[2020-05-17] MEDS ORDERED: MSL20MG/ML SUBLING (09:43)
[2020-05-17] MEDS ORDERED: LORAZEPAM I2 MG/1 ML PO (09:43)
[2020-05-17] MEDS ORDERED: HALOPERIDOL2 MG/1 ML PO (09:44)
--- NOTE | 2020-05-17 10:10 | NUR ---
PT DISCHARGED THIS DAY AT 10:00AM [facility]IA [facility] TO [facility]. PT IS TO ADMIT TO HOSPICE UPON HIS RETURN. SPOUSE IS AWARE CHART COPY ORDERED. ORDERS TO BE FAXED. REPORT TO BE CALLED TO . NO OTHER CM INTERVENTION INDICATED CASE CLOSED.
--- NOTE | 2020-05-17 11:55 | NUR ---
Assumed pt care this am, VS stable. Pt is very confused and impulsive non verbal. Medications crushed and given with pudding, pt needs to be fed. diet and medications are well tolerated. Pt has been picked up and transferred to another facility at 10 am. Pt is now dc.
== END 2020-05-17 10:06 | DRG 71 ==
LOC: 4W 20:16
PROVIDERS: ADMIT Hospitalist; ATTEND Hospitalist
DX: G93.41 Metabolic encephalopathy (principal); E87.0 Hyperosmolality and hypernatremia; F02.81 Dementia in other diseases classified elsewhere, unspecified severity, with behavioral disturbance; E46 Unspecified protein-calorie malnutrition; I48.0 Paroxysmal atrial fibrillation; G30.8 Other Alzheimer's disease; I25.10 Atherosclerotic heart disease of native coronary artery without angina pectoris; G62.9 Polyneuropathy, unspecified; G47.33 Obstructive sleep apnea (adult) (pediatric); I10 Essential (primary) hypertension; E78.5 Hyperlipidemia, unspecified; N40.0 Benign prostatic hyperplasia without lower urinary tract symptoms; Z87.891 Personal history of nicotine dependence; Z20.828 Contact with and (suspected) exposure to other viral communicable diseases; Z81.8 Family history of other mental and behavioral disorders; Z80.0 Family history of malignant neoplasm of digestive organs; Z79.01 Long term (current) use of anticoagulants; I25.2 Old myocardial infarction; Z82.49 Family history of ischemic heart disease and other diseases of the circulatory system; Z88.2 Allergy status to sulfonamides; Z88.8 Allergy status to other drugs, medicaments and biological substances; Z79.82 Long term (current) use of aspirin; Z79.899 Other long term (current) drug therapy
CPT/HCPCS: 10040